=== PATIENT | male | born 1990 | race Two or more races ===

== ENCOUNTER 2016-09-19 21:59 | Emergency (ER) | payer OTHER ==
[~2016-09-19] VITALS: Ht 165.1 cm; Wt 63.5 kg
--- NOTE | 2016-09-19 22:10 | Emergency Room Report ---
History of Present Illness General Chief Complaint: To Be Triaged Source: Patient Present Illness HPI Is a 26-year-old male who is right-hand dominant. He was brought in from work for right hand injury. 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 Complaining of swelling and pain to that area. Pain is 8/10. No fever chills but no nausea no vomiting. Worse with palpation. No other injury. Allergies: Coded Allergies: No Known Allergies (Unverified , 09/19/16) Patient History Past Medical History: see triage record, old chart reviewed Past Surgical History: none Pertinent Family History: none Social History: Denies: smoking Immunizations: other Reviewed Nursing Documentation: PMH: Agreed, PSxH: Agreed Review of Systems Eye: Denies: blurred vision, eye pain ENT: Denies: ear pain, nose congestion, throat swelling Respiratory: Denies: cough, shortness of breath Cardiovascular: Denies: chest pain, palpitations Gastrointestinal: Denies: abdominal pain, diarrhea, nausea, vomiting Musculoskeletal: Reports: joint pain, muscle pain, Denies: back pain Skin: Denies: rash Neurological: Denies: headache, numbness Endocrine: Denies: increased thirst, increased urine Hematologic/Lymphatic: Denies: easy bruising All Other Systems: negative except mentioned in HPI Physical Exam vitals unremarkable Sp02 EP Interpretation: reviewed, normal General Appearance: well appearing, no apparent distress, alert Head: normocephalic, atraumatic Eyes: bilateral eye EOMI, bilateral eye PERRL ENT: hearing grossly normal, normal pharynx Neck: full range of motion, supple, no meningismus Respiratory: chest non-tender, lungs clear, normal breath sounds Cardiovascular #1: regular rate, rhythm, no murmur Gastrointestinal: normal bowel sounds, non tender, no mass, no organomegaly, no bruit, non-distended Musculoskeletal: back normal, gait/station normal, normal range of motion, swelling - right hand: edema and TTP over dorsum. NVI Neurologic: alert, oriented x3 Psychiatric: mood/affect normal Skin: warm/dry Medical Decision Making Diagnostic Impression: Primary Impression: Contusion of right hand, initial encounter ER Course Patient presents with right hand contusion. No fracture dislocation. We'll discharge home. Other X-Ray Diagnostic Results Other X-Ray Diagnostic Results : X-Ray ordered: Right hand # of Views/Limited Vs Complete: 3 View EP Interpretation: Yes Interpretation: no fractures, no dislocation, no soft tissue swelling Indication: Pain Impression: No acute disease Interpreting ER Provider: Electronically interpreted by Luan Mario MD Status: improved Disposition: HOME, SELF-CARE Condition: Stable Scripts Ibuprofen* (MOTRIN*) 600 Mg Tablet 600 MG ORAL Q8H Y for For Pain, #30 TAB 0 Refills Prov: LUAN MARIO M.D. 09/19/16 Additional Instructions: Ice pack to the area. Followup with your Dr. in 7 days. Return if worse. LUAN MARIO M.D. Sep 19, 2016 22:10
[2016-09-19] MEDS ORDERED: Norco 5mg/325mg tab ORAL ONE (22:15)
[2016-09-19] MEDS ORDERED: IBUPROFEN600 MG ORAL (22:41)
[2016-09-19 22:45] VITALS: BP 129/83
--- NOTE | 2016-09-21 09:37 | Diagnostic Imaging Report ---
Indication: pain Findings: 3 views of the right hand were obtained. Normal bony mineralization and alignment are demonstrated. No acute fractures, erosions, or periosteal reaction are seen. Soft tissues are unremarkable. Impression: Negative examination of the right hand.
== END 2016-09-19 22:49 | disposition home or self-care (01) ==
LOC: EMR 22:10
DX: S60.221A Contusion of right hand, initial encounter (principal); W31.89XA Contact with other specified machinery, initial encounter; Y92.511 Restaurant or cafe as the place of occurrence of the external cause; Y99.0 Civilian activity done for income or pay
CPT/HCPCS: 99282